=== PATIENT | female | born 1990 | race Caucasian/White ===

== ENCOUNTER 2016-11-15 19:55 | Emergency (ER) | payer OTHER ==
[~2016-11-15] VITALS: Ht 149.9 cm; Wt 59.6 kg
[~2016-11-15 19:55] MED LIST: OXCA300T PO; OXCA300T4 PO; QUET-205 PO; WLLSR/200 PO
[2016-11-15 20:04] VITALS: TEMP 36.8; Ht 149.9 cm; Wt 59.6 kg
[2016-11-15] MEDS ORDERED: SODIUM CHLORIDE 0.9% 1000ML 1,000 ML IV STA (20:26)
--- NOTE | 2016-11-15 20:40 | EMERGENCY ROOM VISIT NOTE ---
History Report prepared by Romeo: Andriy Devine Under the Supervision of: Dr. Dominique Jerry M.D. First contact with patient: 20:09 Chief Complaint: ED VAG BLEEDING Stated Complaint: CRAMPING, SPOTTING, APPROX 14 WKS History of Present Illness The patient is a 25 year old female who presents to the Emergency Room with complaints of persistent vaginal bleeding that started earlier today. She says she is spotting. The patient also complains of cramping abdominal pain. She thinks she is 14 weeks because her last period was on August 07. This would be her second . She denies any abnormal vaginal discharge, although the patient was seen by Dr. Grimm recently, and he said that the patient had some white secretions. The patient has not noticed these secretions. Dr. Grimm did a full pelvic exam the patient's family noted that Dr. Grimm noticed a bit of tenderness, but per the patient's family, the exam was mostly normal. She denies any urinary problems. The patient was still on an antibiotic for a UTI when she saw Dr. Grimm. Dr. Grimm did not put the patient on any additional antibiotics. She has an appointment with OBGYN at [facility] on December 21. She admits to smoking marijuana a couple weeks ago. She was tested for Hepatitis C by Dr. Grimm but the test has not resulted yet. The patient's blood type if A positive per previous laboratory work. Source of History: patient Onset: Earlier today Position: pelvis (vaginal bleeding) Timing: other (persistent) Associated Symptoms: + abdominal pain (cramping), No urinary symptoms Note: Associated symptoms: Denies any abnormal vaginal discharge. Review of Systems See HPI for pertinent positives & negatives. A total of 10 systems reviewed and were otherwise negative. Past Medical & Surgical Medical Problems: (1) Bipolar disorder (2) opiate addiction (3) Seizures (4) Tonsillectomy Family History No pertinent family history Social History Smoking Status: Never Smoker Drug Use: marijuana Marital Status: Housing Status: lives with family Occupation Status: disabled Current/Historical Medications Scheduled Multivit/Min/Iron/Fol Ac/Pren ( Vitamin), 1 TAB PO DAILY Multivit-Min W/Fe-Fa (), 1 TAB PO DAILY Allergies Coded Allergies: Penicillins (Verified Allergy, Unknown, ?CEPHALEXIN, 2/5/10) Sulfa Drugs (Verified Allergy, Unknown, 12/20/09) Physical Exam Vital Signs Date Time Temp Pulse Resp B/P Pulse Ox O2 Delivery O2 Flow Rate FiO2 11/15/16 23:30 106 18 109/83 100 11/15/16 22:35 116 11/15/16 22:34 115 18 126/98 96 Room Air 11/15/16 22:07 111 20 114/83 97 Room Air 11/15/16 21:19 118 18 130/67 98 Room Air 11/15/16 20:04 36.8 112 18 146/60 98 Room Air Physical Exam Vital signs reviewed. General: Well-appearing 25 year old female, in no significant distress. HEENT: No scleral icterus, PERRLA, neck supple. Atraumatic. Cardiovascular: Regular rate and rhythm, no extra sounds. Pulmonary: Clear to auscultation bilaterally, normal work of breathing. Abdomen: Soft, nontender, nondistended, positive bowel sounds. Musculoskeletal: Atraumatic, no peripheral edema. Neurologic: Patient awake alert and oriented x 3 Skin: Warm, dry, no rash Medical Decision & Procedures ER Provider Diagnostic Interpretation: US results as stated below per my review and radiologist interpretation: ULTRASOUND LIMITED CLINICAL HISTORY: . Spotting. COMPARISON STUDY: No priors. FINDINGS: Real-time, grayscale, and color Doppler transabdominal ultrasonography of the fetus and gravid uterus is performed. There is a single live uterine gestation with an estimated heart rate of 162 bpm. The cervix appears closed. The placenta is anterior. A [place] Sán[place] contraction was noted during the examination. The amniotic fluid volume is grossly normal. The femoral length measures 1.64 cm, corresponding to an estimated age of 14 weeks 6 days. The left ovary is normal in appearance. The right ovary was not visualized. IMPRESSION: 1. There is a single live uterine gestation with an estimated age of 14 weeks 6 days by femoral length measurement. 2. Note that this does not constitute a dedicated anatomic scan. Electronically signed by: Fantasma Stanton M.D. 11/15/2016 10:08 PM Laboratory Results 11/15/16 20:50 Red Blood Count 3.91, Mean Corpuscular Volume 88.0, Mean Corpuscular Hemoglobin 30.7, Mean Corpuscular Hemoglobin Concent 34.9, Mean Platelet Volume 9.2, Neutrophils (%) (Auto) 66.1, Lymphocytes (%) (Auto) 25.0, Monocytes (%) (Auto) 7.9, Eosinophils (%) (Auto) 0.3, Basophils (%) (Auto) 0.2, Neutrophils # (Auto) 6.90, Lymphocytes # (Auto) 2.60, Monocytes # (Auto) 0.82, Eosinophils # (Auto) 0.03, Basophils # (Auto) 0.02 11/15/16 20:50 Test 11/15/16 20:45 11/15/16 20:50 Urine Color DK YELLOW Urine Appearance CLEAR (CLEAR) Urine pH 6.0 (4.5-7.5) Urine Specific [place] 1.017 (1.000-1.030) Urine Protein NEG (NEG) Urine Glucose (UA) NEG (NEG) Urine Ketones TRACE (NEG) Urine Occult Blood NEG (NEG) Urine Nitrite NEG (NEG) Urine Bilirubin NEG (NEG) Urine Urobilinogen NEG (NEG) Urine Leukocyte Esterase SMALL (NEG) Urine WBC (Auto) 5-10 /hpf (0-5) Urine RBC (Auto) 0-4 /hpf (0-4) Urine Hyaline Casts (Auto) 1-5 /lpf (0-5) Urine Epithelial Cells (Auto) >30 /lpf (0-5) Urine Bacteria (Auto) 1+ (NEG) Urine Renal Epithelial Cells /lpf (0-5) Urine Opiates Screen NEG (NEG) Urine Methadone, Qualitative NEG (NEG) Urine Barbiturates NEG (NEG) Urine Phencyclidine (PCP) Level NEG (NEG) Ur Amphetamine/Methamphetamine NEG (NEG) MDMA (Ecstasy) Screen NEG (NEG) Urine Benzodiazepines Screen NEG (NEG) Urine Cocaine Metabolite NEG (NEG) Urine Marijuana (THC) POS (NEG) White Blood Count 10.42 K/uL (4.8-10.8) Red Blood Count 3.91 M/uL (4.2-5.4) Hemoglobin 12.0 g/dL (12.0-16.0) Hematocrit 34.4 % (37-47) Mean Corpuscular Volume 88.0 fL (80-100) Mean Corpuscular Hemoglobin 30.7 pg (25-34) Mean Corpuscular Hemoglobin Concent 34.9 g/dl (32-36) Platelet Count 268 K/uL (130-400) Mean Platelet Volume 9.2 fL (7.4-10.4) Neutrophils (%) (Auto) 66.1 % Lymphocytes (%) (Auto) 25.0 % Monocytes (%) (Auto) 7.9 % Eosinophils (%) (Auto) 0.3 % Basophils (%) (Auto) 0.2 % Neutrophils # (Auto) 6.90 K/uL (1.4-6.5) Lymphocytes # (Auto) 2.60 K/uL (1.2-3.4) Monocytes # (Auto) 0.82 K/uL (0.11-0.59) Eosinophils # (Auto) 0.03 K/uL (0-0.5) Basophils # (Auto) 0.02 K/uL (0-0.2) RDW Standard Deviation 47.2 fL (36.4-46.3) RDW Coefficient of Variation 14.7 % (11.5-14.5) Immature Granulocyte % (Auto) 0.5 % Immature Granulocyte # (Auto) 0.05 K/uL (0.00-0.02) Anion Gap 12.0 mmol/L (3-11) Est Creatinine Clear Calc Drug Dose 118.6 ml/min Estimated GFR () 148.1 Estimated GFR (Non- 127.8 BUN/Creatinine Ratio 10.5 (10-20) Calcium Level 8.8 mg/dl (8.5-10.1) Magnesium Level 2.0 mg/dl (1.8-2.4) Total Bilirubin 0.4 mg/dl (0.2-1) Direct Bilirubin 0.1 mg/dl (0-0.2) Aspartate Amino Transf (AST/SGOT) 99 U/L (15-37) Alanine Aminotransferase (ALT/SGPT) 153 U/L (12-78) Alkaline Phosphatase 56 U/L (45-117) Total Protein 7.2 gm/dl (6.4-8.2) Albumin 3.4 gm/dl (3.4-5.0) Human Chorionic Gonadotropin, Quant 61661 mIU/mL Laboratory results per my review. Medications Administered Medications (Trade) Dose Ordered Sig/Nicole Route Start Time Stop Time Status Last Admin Dose Admin Sodium Chloride (Nss 1000ml) 1,000 ml @ 999 mls/hr Q1H1M STAT IV 11/15/16 20:26 11/15/16 21:26 DC 11/15/16 20:53 999 MLS/HR Potassium Chloride 40 meq 40 meq NOW STAT PO 11/15/16 21:59 11/15/16 22:00 DC 11/15/16 22:24 40 MEQ Ceftriaxone Sodium/Dextrose (Rocephin Inj/D5 25ml) 27.5 ml @ 55 mls/hr NOW STAT IV 11/15/16 21:59 11/15/16 22:28 DC 11/15/16 22:33 55 MLS/HR Azithromycin (Zithromax Tab) 1,000 mg NOW ONCE PO 11/15/16 22:00 11/15/16 22:01 DC 11/15/16 22:23 1,000 MG ED Course 2022: Past medical records reviewed. The patient was evaluated in room C4. A complete history and physical examination was performed. 2025: Ordered NSS 1000 ml @ 999 mls/hr IV. 2158: Ordered Ceftriaxone Sodium 250 mg/Dextrose 27.5 ml @ 55 mls/hr IV, Klor- Con M10 40 meq PO. 2199: Ordered Zithromax Tab 1000 mg PO. 2214: I reevaluated the patient and she is resting comfortably. The patient verbally expressed agreement and understanding of the treatment plan. The patient will be discharged. Medical Decision Differential diagnosis: Etiologies such as ectopic , dysfunction uterine bleeding, bleeding dyscrasia, trauma, infection, as well as others were entertained. This patient was evaluated and appeared to be in no significant distress. Laboratory work reveals a positive test. Ultrasound was performed and reveals a viable intrauterine gestation at approximately 14 weeks. Records from the outpatient office were obtained and reveal a positive chlamydia, gonorrhea is pending. Patient is also hepatitis C positive, HIV negative. Patient was medicated with IV ceftriaxone 250 mg and 1 g of oral azithromycin. As the patient recently had a pelvic exam only several days ago, repeat exam was not obtained. Patient was informed of the findings. Old records review an Rh+ blood type, no Rhogam and was administered. The bleeding is not significant at this time. Patient was discharged follow-up with [facility] as scheduled and her primary care physician. She was asked to return to the ER for worsening of symptoms or any medical concerns. Impression Primary Impression: Chlamydia Additional Impressions: Second trimester , Hepatitis C, History of IV drug abuse Scribe Attestation The scribe's documentation has been prepared under my direction and personally reviewed by me in its entirety. I confirm that the note above accurately reflects all work, treatment, procedures, and medical decision making performed by me. Departure Information Dispostion Home / Self-Care Prescriptions Multivit-Min W/Fe-Fa () 1 Tab Tab 1 TAB PO DAILY for 30 Days, #30 TAB 11 Refills Prov: Dominique Jerry M.D. 11/15/16 Referrals No Doctor, Assigned (PCP) Wil Grimm M.D. Sahin-Kandemir, Canan., MD Forms HOME CARE DOCUMENTATION FORM, IMPORTANT VISIT INFORMATION, WORK / SCHOOL INSTRUCTIONS Patient Instructions A Signature Page, My [facility] Additional Instructions Diagnosis: Second trimester , hepatitis C, chlamydia, history of IV drug abuse Drink plenty of clear fluids. vitamin daily. Avoid illicit substances, narcotics, excessive Tylenol, alcohol and nicotine. Follow-up with [facility] as soon as possible to initiate care. You have been given ceftriaxone and azithromycin in the emergency department today. Follow-up with your primary care physician for further management regarding the hepatitis C. Return to the emergency department for worsening of symptoms or any medical concerns.
[2016-11-15 21:04] LABS: BASO % 0.2 %; BASO ABS # 0.02 K/uL (0-0.2); COMPLETE YES; EOS % 0.3 %; HEMATOCRIT 34.4 % (37-47); IG% 0.5 %; MEAN CORPUSCULAR HEMOGLOBIN 30.7 pg (25-34); MEAN CORPUSCULAR HGB CONC 34.9 g/dl (32-36); MEAN PLATELET VOLUME 9.2 fL (7.4-10.4); MONO % 7.9 %; NEUT % 66.1 %; PLATELET COUNT 268 K/uL (130-400); RED BLOOD COUNT 3.91 M/uL (4.2-5.4); WHITE BLOOD COUNT 10.42 K/uL (4.8-10.8)
[2016-11-15 21:22] LABS: BUN/CREATININE RATIO 10.5 (10-20); CALCIUM 8.8 mg/dl (8.5-10.1); CREATININE 0.56 mg/dl (0.60-1.20); POTASSIUM 3.1 mmol/L (3.5-5.1)
[2016-11-15 21:26] LABS: URINE APPEARANCE CLEAR (CLEAR); URINE BILIRUBIN NEG (NEG); URINE COLOR DK YELLOW; URINE EPITHELIAL CELL AUTO >30 /lpf (0-5); URINE NITRITE NEG (NEG); URINE SPECIFIC GRAVITY 1.017 (1.000-1.030); UROBILINOGEN NEG (NEG); ZZUR CULT IF INDIC CLEAN CATCH YES
[2016-11-15 21:38] LABS: MANUAL MICROSCOPIC REQUIRED? NO; REVIEW REQ? YES
[2016-11-15] MEDS ORDERED: CEFTRIAXONE SOD INJ 250 MG in DEXTROSE 5% 25ML 25 ML IV STA (21:59)
[2016-11-15] MEDS ORDERED: POTASSIUM CHLORIDE 10 MEQ TABCR PO STA (21:59)
[2016-11-15] MEDS ORDERED: AZITHROMYCIN 250 MG TAB PO ONE (22:00)
--- NOTE | 2016-11-15 22:09 | DIAGNOSTIC IMAGING REPORT ---
ULTRASOUND LIMITED CLINICAL HISTORY: . Spotting. COMPARISON STUDY: No priors. FINDINGS: Real-time, grayscale, and color Doppler transabdominal ultrasonography of the fetus and gravid uterus is performed. There is a single live uterine gestation with an estimated heart rate of 162 bpm. The cervix appears closed. The placenta is anterior. A [place] Sánchez contraction was noted during the examination. The amniotic fluid volume is grossly normal. The femoral length measures 1.64 cm, corresponding to an estimated age of 14 weeks 6 days. The left ovary is normal in appearance. The right ovary was not visualized. IMPRESSION: 1. There is a single live uterine gestation with an estimated age of 14 weeks 6 days by femoral length measurement. 2. Note that this does not constitute a dedicated anatomic scan. Electronically signed by: Fantasma Stanton M.D. 11/15/2016 10:08 PM
[2016-11-15] MEDS ORDERED: PRENTAB65 PO (22:38)
[2016-11-15 22:54] LABS: BENZODIAZEPINE, URINE NEG (NEG); COCAINE,URINE NEG (NEG); PHENCYCLIDINE, URINE NEG (NEG)
[2016-11-15] MEDS ORDERED: PRENTAB26 PO (23:04)
[2016-11-15 23:30] VITALS: BP 109/83; PULSE 106; O2SAT 100
[2017-04-26] MEDS ORDERED: vitamin d (15:01)
[2017-05-01] MEDS ORDERED: VORT5TAB PO (21:36)
== END 2016-11-15 23:30 | disposition home or self-care (01) ==
LOC: C.EDB 19:57 → C.EDC 23:30
DX: O99.342 Other mental disorders complicating pregnancy, second trimester (principal); A74.9 Chlamydial infection, unspecified; B19.20 Unspecified viral hepatitis C without hepatic coma; F19.10 Other psychoactive substance abuse, uncomplicated; F31.9 Bipolar disorder, unspecified; Z3A.14 14 weeks gestation of pregnancy

== ENCOUNTER 2017-04-30 01:05 | Inpatient (IN) | payer OTHER ==
[2017-04-30] VITALS (16 sets, daily range): BP systolic 114–143; BP diastolic 72–80; PULSE 69–91; TEMP 36.7–37.5; O2SAT 95–100; Ht 149.9 cm; Wt 70.5 kg
[~2017-04-30] VITALS: Ht 149.9 cm; Wt 70.5 kg
[~2017-04-30 01:05] MED LIST changes: -OXCA300T PO; -OXCA300T4 PO; +PRENTAB26 PO; -QUET-205 PO; -WLLSR/200 PO; +vitamin d
[2017-04-30] MEDS ORDERED: LACTATED RINGER'S 1000ML 1,000 ML IV SCH ×2 (05:17→07:40)
[2017-04-30] MEDS ORDERED: CITRIC ACID/SODIUM CITRATE 15 ML UDC PO ONE (05:30)
[2017-04-30] MEDS ORDERED: FENTANYL CITRATE INJ 50 MCG/1 ML 2 ML VIAL IV PRN (05:45)
[2017-04-30] MEDS ORDERED: ATROPINE SULFATE 0.1 MG/ML 5ML SYR IV PRN (05:45)
[2017-04-30] MEDS ORDERED: ONDANSETRON INJ 2 MG/ML 2 ML VIAL IV PRN ×2 (05:45→06:45)
[2017-04-30] MEDS ORDERED: EpHEDrine SULFATE INJ 50 MG/ML AMP IV PRN ×2 (05:45→06:45)
[2017-04-30] MEDS ORDERED: KETOROLAC TROMETHAMINE 30 MG/ML VIAL IV. PRN ×2 (05:45→06:45)
--- NOTE | 2017-04-30 05:50 | History & Physical Bridge Note ---
H&P Re-Evaluation Bridge Note: I have examined the patient, reviewed the History & Physical and in the interval since the performance of the History & Physical I have noted the following changes of clinical significance: Patient is in active labor at 38 weeks, will proceed with scheduled primary section secondary to a history of a fourth degree laceration. Risks were discussed with the patient, informed consent signed.
[2017-04-30] MEDS ORDERED: CEFAZOLIN IV 2,000 MG in DEXTROSE 5% 50ML 50 ML IV SCH (06:00)
[2017-04-30] MEDS ORDERED: OXYTOCIN INJ 10 UNITS/ML VIAL ONE ×2 (06:02→07:02)
[2017-04-30] MEDS ORDERED: FENTANYL CITRATE INJ 50 MCG/1 ML 2 ML VIAL ONE (06:02)
[2017-04-30] MEDS ORDERED: MoRPHine SULFATE PF 1 MG/ML 10 ML AMP/VIAL ONE (06:02)
[2017-04-30 06:14] LABS: BASO % 0.1 %; BASO ABS # 0.02 K/uL (0-0.2); COMPLETE YES; EOS % 0.7 %; HEMATOCRIT 41.4 % (37-47); IG% 0.8 %; LYMPH % 27.9 %; LYMPH ABS # 3.77 K/uL (1.2-3.4); MEAN CELL VOLUME 91.8 fL (80-100); MEAN CORPUSCULAR HEMOGLOBIN 31.3 pg (25-34); MEAN CORPUSCULAR HGB CONC 34.1 g/dl (32-36); MEAN PLATELET VOLUME 11.5 fL (7.4-10.4); MONO % 8.7 %; NEUT % 61.8 %; PLATELET COUNT 236 K/uL (130-400); RED BLOOD COUNT 4.51 M/uL (4.2-5.4); WHITE BLOOD COUNT 13.52 K/uL (4.8-10.8)
[2017-04-30] MEDS ORDERED: NALOXONE HCL INJ 1 MG in SODIUM CHLORIDE 0.9% 1000ML 1,000 ML IV PRN (06:43)
[2017-04-30] MEDS ORDERED: LACTATED RINGER'S 1000ML 500 ML IV PRN (06:43)
[2017-04-30] MEDS ORDERED: NALOXONE HCL INJ 0.08 MG in SYRINGE 1.8 ML IV PRN (06:43)
[2017-04-30] MEDS ORDERED: SODIUM CHLORIDE 0.9% 1000ML 1,000 ML IV PRN (06:43)
[2017-04-30] MEDS ORDERED: NALOXONE HCL 0.4 MG/1 ML VIAL/CARP IV PRN (06:45)
[2017-04-30] MEDS ORDERED: NO NARCOTICS OR SEDATIVES SCH (06:45)
[2017-04-30] MEDS ORDERED: MEPERIDINE HCL 25 MG/ML CARP IV PRN (06:45)
[2017-04-30] MEDS ORDERED: DC INTRASPINAL MORPHINE SCH (06:45)
[2017-04-30] MEDS ORDERED: MoRPHine SULFATE PF 1 MG/ML 10 ML AMP/VIAL EPI PRN (06:45)
[2017-04-30] MEDS ORDERED: PHENYLEPHRINE HCL INJ 10 MG/ML VIAL ONE (06:50)
[2017-04-30] MEDS ORDERED: BENZOCAINE 20% AER SPR 82.5 GM CAN ONE (06:51)
[2017-04-30 07:45] LABS: BENZODIAZEPINE, URINE NEG (NEG); COCAINE,URINE NEG (NEG); PHENCYCLIDINE, URINE NEG (NEG)
[2017-04-30] MEDS ORDERED: BENZOCAINE 20% AER SPR 82.5 GM CAN EXT PRN (07:45)
[2017-04-30] MEDS ORDERED: LANOLIN OINT EXT PRN ×2 (07:45)
[2017-04-30] MEDS ORDERED: HYDROCORTISONE ACETATE 25 MG SUPP PR PRN (07:45)
[2017-04-30] MEDS ORDERED: MAGNESIUM HYDROXIDE SUSP 30 ML UDC PO PRN (07:45)
[2017-04-30] MEDS ORDERED: DIPHTHERIA/TETANUS/PERTUSSIS 0.5 ML SYR/VIAL IM. ONE (07:45)
[2017-04-30] MEDS ORDERED: SENNA 8.6 MG TAB PO PRN (07:45)
[2017-04-30] MEDS ORDERED: SUPERCREAM 0.870 % 15GM JAR EXT PRN (07:45)
--- NOTE | 2017-04-30 07:45 | [facility] Post Operative Brief Note ---
Immediate Operative Summary Operative Date Apr 30, 2017. Pre-Operative Diagnosis IUP 38 weeks; Hx fourth degree laceration; Requesting primary Section; Active labor Post-Operative Diagnosis IUP 38 weeks; Hx fourth degree laceration; Requesting primary Section; Active labor Procedure(s) Performed Primary Section for delivery of a live male child at [address] Holman [employer] Manager Surgeon(s) Janel Mariee Estimated Blood Loss 600 Findings Patient delivered a viable male at 0702 on 04/30/2017 in the vertex position via primary LTCS. APGARs and weight pending. Intact placenta with a 3 VC delivered manually 0703 and sent to pathology. Cord blood obtained. Normal uterus and bilateral tubes and ovaries noted. Patient tolerated the surgery well and was sent to recovery with stable vital signs. Fluids (cc crystalloids) 1500 Specimens Placenta (exam) Cord blood Drains Boswell to gravity Anesthesia Spinal Complication(s) None Disposition L&D
[2017-04-30] MEDS: DOCUSATE SODIUM 100 MG CAP PO SCH ×2 (08:00→19:13)
[2017-04-30] MEDS: FERROUS SULFATE 325 MG TAB PO SCH (08:00)
[2017-04-30] MEDS: PRENATAL VITAMIN TAB PO SCH (08:00)
[2017-04-30] MEDS: DiphenhydrAMINE HCL 50 MG/ML VIAL IV PRN ×3 (08:06→20:26)
--- NOTE | 2017-04-30 08:16 | OPERATIVE REPORT ---
DATE OF OPERATION: 04/30/2017 PREOPERATIVE DIAGNOSES: 1. Intrauterine at 38 weeks gestation. 2. History of fourth degree laceration, requesting a primary section. 3. Active labor. POSTOPERATIVE DIAGNOSES: Same. OPERATIVE PROCEDURE: Primary low transverse section. SURGEON: Dr. Holman. FINISH CLEANER: Janel Mariee RN. ANESTHESIA: Spinal. ESTIMATED BLOOD LOSS: 600 mL. IV FLUIDS: 1500 mL crystalloids. URINE OUTPUT: 100 mL clear yellow urine. SPECIMENS: Cord blood and placenta to pathology. DRAINS: Boswell to gravity. COMPLICATIONS: None. DISPOSITION: Labor and delivery. OPERATIVE FINDINGS: The patient delivered a viable male infant at 7:02 a.m. on 04/30/2017 in the vertex position via primary low transverse section. Apgars and weight are pending. Cord blood was obtained and an intact placenta with a 3-vessel cord was delivered manually at 7:03 and sent to pathology. Grossly normal uterus and bilateral tubes and ovaries were noted. The patient tolerated the surgery well and was sent to recovery with stable vital signs. OPERATIVE PROCEDURE IN DETAIL: The patient was taken to the operating room where spinal anesthesia was administered. The patient was then immediately placed in dorsal supine position with a left lateral tilt and was prepped and draped in a manner appropriate for the procedure. Once anesthesia was found to be adequate, a Pfannenstiel skin incision was made 2 fingerbreadths above the pubic symphysis and was carried down through to a layer of the rectus fascia. Fascia was nicked in the midline and extended bilaterally with curved Krause scissors. The superior aspect of the fascial incision was grasped with Giuseppe clamps, elevated, and the rectus muscles were dissected off with the use of the curved Krause scissors and electrocautery. Likewise, the inferior aspect of the fascial incision was grasped with Giuseppe clamps, elevated, and rectus muscles were dissected off with the use of the curved Krause scissors and electrocautery. Rectus muscles were in midline. Peritoneum was entered with hemostats and Metzenbaum scissors. The peritoneal incision was extended cephalocaudally with gentle traction. A bladder blade was then placed within the abdomen. The vesicouterine peritoneum was identified and a bladder flap was created with the Metzenbaum scissors and digital traction. The bladder flap was reincorporated beneath the bladder blade. A transverse incision was then made on the uterus and extended bilaterally with digital traction. Membranes were then ruptured noting clear amniotic fluid. Baby's head was identified and delivered through the incision along with the rest of the body. Baby was bulb suctioned at delivery. Cord was clamped x2 and cut. Baby was then handed to an awaiting systems spec for further evaluation and management. Please see their notes for further baby assessment. Cord blood was then obtained and an intact placenta with 3-vessel cord was delivered through the incision and sent to pathology. The uterus was then exteriorized and wrapped in a moist laparotomy sponge. The uterus was then cleared of any trailing membranes and debris with laparotomy sponge. The uterine incision was then grasped with ring forceps at 4 quadrants and was closed with 0 Vicryl suture in continuous locking fashion. A second 0 Vicryl suture was used in imbricating fashion to ensure hemostasis. Any residual bleeding was suture ligated with 0 Vicryl suture in a figure-of-8 interrupted fashion. Excellent hemostasis was noted. The posterior cul-de-sac was then irrigated with warm saline solution. The uterus was then placed back within its normal anatomic position within the abdomen. The anterior cul-de-sac was then irrigated with warm saline solution. Again, the uterine incision was noted to be hemostatic. The bladder flap was reapproximated to the lower uterine segment with 3-0 Vicryl suture in continuous running fashion. All instruments were then removed from the abdomen. The peritoneum was then grasped with Lucinda clamps and was closed with 2-0 Vicryl suture in continuous running fashion. The rectus fascia was then closed with 0 Vicryl suture in continuous running fashion. The incision was then irrigated with warm saline solution. The incision was then closed with staci. Excellent hemostasis was noted through all tissue layers. All sponge, instrument and needle counts were found to be correct x2. The patient tolerated the procedure well and was sent to recovery with stable vital signs. I attest to the content of the Intraoperative Record and any orders documented therein. Any exceptions are noted below. DENNY
[2017-04-30] MEDS: NALBUPHINE HCL INJ 10 MG/ML AMP IV PRN ×3 (08:19→16:58)
[2017-04-30] MEDS: OXYTOCIN INJ 30 UNITS in LACTATED RINGER'S 1000ML 1,000 ML IV SCH ×2 (08:49→18:20)
[2017-04-30] MEDS: SIMETHICONE 80 MG CHEW PO SCH ×4 (09:00→19:13)
--- NOTE | 2017-04-30 10:14 | Anesthesiology Progress Note ---
Anesthesia Post Op Note Date & Time Apr 30, 2017 at 10:14 Notes Mental Status: alert / awake / arousable, participated in evaluation Pt Amnestic to Procedure: Yes Nausea / Vomiting: adequately controlled Pain: adequately controlled Airway Patency, RR, SpO2: stable & adequate BP & HR: stable & adequate Hydration State: stable & adequate Neuraxial Anesthesia: was administered, sensory block is resolving Anesthetic Complications: no major complications apparent
[2017-05-01 00:45] VITALS: BP 129/82; PULSE 82; TEMP 37.4; O2SAT 95
[2017-05-01] MEDS ORDERED: KETOROLAC TROMETHAMINE 30 MG/ML VIAL IV. PRN (00:45)
[2017-05-01] MEDS ORDERED: ONDANSETRON INJ 2 MG/ML 2 ML VIAL IV PRN (00:45)
[2017-05-01 03:35] VITALS: BP 114/80; PULSE 78; TEMP 37.2; O2SAT 97
[2017-05-01 06:49] LABS: BASO % 0.1 %; BASO ABS # 0.02 K/uL (0-0.2); COMPLETE YES; HEMATOCRIT 37.5 % (37-47); IG% 0.6 %; LYMPH % 22.7 %; LYMPH ABS # 3.07 K/uL (1.2-3.4); MEAN CELL VOLUME 92.6 fL (80-100); MEAN CORPUSCULAR HEMOGLOBIN 30.1 pg (25-34); MEAN CORPUSCULAR HGB CONC 32.5 g/dl (32-36); MEAN PLATELET VOLUME 11.2 fL (7.4-10.4); MONO % 7.8 %; NEUT % 67.8 %; PLATELET COUNT 216 K/uL (130-400); RED BLOOD COUNT 4.05 M/uL (4.2-5.4); WHITE BLOOD COUNT 13.51 K/uL (4.8-10.8)
[2017-05-01 07:50] VITALS: BP 106/72; PULSE 72; TEMP 37.1; O2SAT 97
[2017-05-01] MEDS ORDERED: DIPHTHERIA/TETANUS/PERTUSSIS 0.5 ML SYR/VIAL IM. ONE (09:00)
[2017-05-01] MEDS: DOCUSATE SODIUM 100 MG CAP PO SCH ×2 (09:09→20:29)
[2017-05-01] MEDS: FERROUS SULFATE 325 MG TAB PO SCH (09:09)
[2017-05-01] MEDS: PRENATAL VITAMIN TAB PO SCH (09:09)
[2017-05-01] MEDS: SIMETHICONE 80 MG CHEW PO SCH ×4 (09:09→20:28)
[2017-05-01] MEDS: OXYCODONE/ACETAMINOPHEN 5-325 TAB PO PRN ×4 (09:10→20:28)
[2017-05-01] MEDS: IBUPROFEN 600 MG TAB PO PRN ×4 (09:10→20:28)
--- NOTE | 2017-05-01 10:33 | OB/GYN Progress Note ---
[employer] MECH[employer] Progress Note Date of Service May 01, 2017. Subjective conversation w/ patient, physical exam Ambulation: ambulating normally Voiding: no voiding problems Passing Gas: Yes Diet Tolerance: Regular Diet Lochia: Small Pain: 5/10 Notes: Doing well, no concerns. Pain well controlled. Tolerating regular diet, +flatus , -BM. Ambulating without difficulty. Incision is c/d/i. Objective Vital Signs Date Time Temp Pulse Resp B/P (MAP) Pulse Ox O2 Delivery O2 Flow Rate FiO2 05/01/17 07:50 37.1 72 20 106/72 (83) 97 Room Air 05/01/17 03:35 37.2 78 18 114/80 (91) 97 Room Air 05/01/17 00:45 18 95 05/01/17 00:45 95 Room Air 05/01/17 00:45 37.4 82 18 129/82 (98) 95 Room Air 04/30/17 23:45 16 95 04/30/17 21:00 18 97 04/30/17 20:00 18 98 04/30/17 19:15 37.5 91 18 117/78 (91) 97 Room Air 04/30/17 19:00 18 98 04/30/17 18:00 18 97 04/30/17 17:00 18 97 04/30/17 16:45 97 Room Air 04/30/17 16:45 37.2 88 18 116/72 (87) 97 Room Air 04/30/17 16:00 18 98 04/30/17 15:00 18 98 04/30/17 14:00 18 98 04/30/17 13:00 83 18 116/73 (87) 97 Room Air 04/30/17 13:00 18 97 04/30/17 12:05 36.7 78 18 114/73 (87) 98 Room Air 04/30/17 12:05 18 98 04/30/17 11:05 18 100 04/30/17 11:05 88 18 143/77 (99) 100 Room Air 04/30/17 10:35 69 18 115/77 (90) 99 Room Air Physical Exam General Appearance: WELL-APPEARING Respiratory/Chest: chest non-tender, lungs clear Cardiovascular: regular rate, rhythm Abdomen: normal bowel sounds, soft Fundus: Firm Incision Description: Clean, Dry & Intact Extremities: normal range of motion, non-tender, no calf tenderness Laboratory Results Last 24 Hours Test 05/01/17 06:26 White Blood Count 13.51 K/uL Red Blood Count 4.05 M/uL Hemoglobin 12.2 g/dL Hematocrit 37.5 % Mean Corpuscular Volume 92.6 fL Mean Corpuscular Hemoglobin 30.1 pg Mean Corpuscular Hemoglobin Concent 32.5 g/dl Platelet Count 216 K/uL Mean Platelet Volume 11.2 fL Neutrophils (%) (Auto) 67.8 % Lymphocytes (%) (Auto) 22.7 % Monocytes (%) (Auto) 7.8 % Eosinophils (%) (Auto) 1.0 % Basophils (%) (Auto) 0.1 % Neutrophils # (Auto) 9.15 K/uL Lymphocytes # (Auto) 3.07 K/uL Monocytes # (Auto) 1.05 K/uL Eosinophils # (Auto) 0.14 K/uL Basophils # (Auto) 0.02 K/uL RDW Standard Deviation 47.7 fL RDW Coefficient of Variation 14.0 % Immature Granulocyte % (Auto) 0.6 % Immature Granulocyte # (Auto) 0.08 K/uL Assessment and Plan Post-Op Day Number: 1 Continue Routine Care: -Continue routine postop care -Advance activity as tolerated.
[2017-05-01 12:45] VITALS: BP 107/70; PULSE 69; TEMP 36.6; O2SAT 99
[2017-05-01 16:10] VITALS: BP 110/71; PULSE 72; TEMP 36.7
[2017-05-01] MEDS ORDERED: VORT5TAB PO (21:36)
[2017-05-01] MEDS ORDERED: BISACODYL 5 MG TABEC PO ONE (22:00)
[2017-05-02 00:30] VITALS: BP 118/64; PULSE 83; TEMP 36.9
[2017-05-02] MEDS: IBUPROFEN 600 MG TAB PO PRN ×5 (00:38→20:42)
[2017-05-02] MEDS: OXYCODONE/ACETAMINOPHEN 5-325 TAB PO PRN ×5 (00:39→20:42)
[2017-05-02 06:46] LABS: HEMATOCRIT 35.4 % (37-47)
[2017-05-02] MEDS ORDERED: BISACODYL 10 MG SUPP PR PRN (07:45)
[2017-05-02 08:05] VITALS: BP 104/66; PULSE 60; TEMP 36.7; O2SAT 98
[2017-05-02] MEDS: FERROUS SULFATE 325 MG TAB PO SCH (08:42)
[2017-05-02] MEDS: DOCUSATE SODIUM 100 MG CAP PO SCH ×2 (08:42→20:41)
[2017-05-02] MEDS: PRENATAL VITAMIN TAB PO SCH (08:42)
[2017-05-02] MEDS: SIMETHICONE 80 MG CHEW PO SCH ×4 (08:42→20:41)
--- NOTE | 2017-05-02 10:49 | OB/GYN Progress Note ---
EMERGENCY DEPT TECH Progress Note Date of Service May 02, 2017. Subjective conversation w/ patient, physical exam Ambulation: ambulating normally Voiding: no voiding problems Passing Gas: Yes Diet Tolerance: Regular Diet Lochia: Small Pain: 05/24 Notes: Doing well. Tolerating regular diet. Ambulating without difficulty. Lochia minimal. Incision c/d/i. Objective Vital Signs Date Time Temp Pulse Resp B/P (MAP) Pulse Ox O2 Delivery O2 Flow Rate FiO2 05/02/17 08:05 36.7 60 20 104/66 (79) 98 Room Air 05/02/17 00:30 Room Air 05/02/17 00:30 36.9 83 20 118/64 (82) Room Air 05/01/17 16:10 36.7 72 20 110/71 (84) Room Air 05/01/17 16:10 Room Air 05/01/17 12:45 36.6 69 16 107/70 (82) 99 Room Air Physical Exam General Appearance: WELL-APPEARING Respiratory/Chest: chest non-tender, lungs clear Cardiovascular: regular rate, rhythm Abdomen: normal bowel sounds, soft Fundus: Firm Incision Description: Clean, Dry & Intact Extremities: normal range of motion, non-tender, no calf tenderness Laboratory Results Last 24 Hours Test 05/02/17 06:21 Hemoglobin 12.0 g/dL Hematocrit 35.4 % Assessment and Plan Post-Op Day Number: 2 Continue Routine Care: -Continue routine postop care -Anticipate d/c home tomorrow AM.
[2017-05-02 15:30] VITALS: BP 114/73; PULSE 74; TEMP 37.2
[2017-05-02 23:45] VITALS: BP 115/78; PULSE 75; TEMP 36.9
[2017-05-03] MEDS: IBUPROFEN 600 MG TAB PO PRN (00:47)
[2017-05-03] MEDS: OXYCODONE/ACETAMINOPHEN 5-325 TAB PO PRN ×2 (00:48→07:52)
[2017-05-03] MEDS: DOCUSATE SODIUM 100 MG CAP PO SCH (07:46)
[2017-05-03] MEDS: SIMETHICONE 80 MG CHEW PO SCH (07:46)
[2017-05-03] MEDS: FERROUS SULFATE 325 MG TAB PO SCH (07:46)
[2017-05-03] MEDS: PRENATAL VITAMIN TAB PO SCH (07:46)
[2017-05-03 08:20] VITALS: BP 111/55; PULSE 76; TEMP 37.1; O2SAT 99
[2017-05-03] MEDS ORDERED: OXYC-57 PO (09:29)
--- NOTE | 2017-05-03 09:31 | Discharge Instructions ---
Discharge Instructions Date of Service May 03, 2017. Admission Reason for Admission: LABOR Discharge Discharge Diagnosis / Problem: term delivered Discharge Goals Goal(s): Routine recovery after Activity Recommendations Activity Limitations: as noted below Lifting Limitations: no more than 10 pounds Exercise/Sports Limitations: as tolerated May Resume Sexual Activity: after follow-up appointment Shower/Bathe: no limitations Driving or Machine Use: . Instructions / Follow-Up Instructions / Follow-Up ACTIVITY RECOMMENDATIONS: * Gradual return to full activity over the next 2-3 weeks. * No lifting - nothing heavier than baby over the next 2-3 weeks. * Do not engage in vigorous exercise, sexual activity or sports until cleared by your physician. * Do not drive or operate any motorized equipment until cleared by your physician. * You may shower/bathe daily. BREAST CARE: If you are not breast feeding: * Wear a supportive bra 24 hours a day for one to two weeks. * Avoid stimulating your breasts and nipples as much as possible during the first few weeks after delivery. * When taking a shower, have the warm water hit your back, not breasts. * When your breasts feel full, apply ice packs. Usually three to four times a day helps ease the discomfort. * Take a mild pain medication (Tylenol/Motrin) when you are uncomfortable. If breast feeding: * Use breast milk to lubricate nipples. Lansinoh cream may be used for sore nipples. You do not need to remove cream prior to breast feeding. If using a different brand of cream, check the label for directions regarding removal of cream prior to nursing. * Wear a supportive bra. * If having problems with breasts or breast feeding, call a learning and development consultant or your health care provider. OVER THE COUNTER MEDICATION: * For discomfort or pain, you may use Acetaminophen (Tylenol), Ibuprofen (Advil ), or Naproxen (Aleve) following the package directions. * For constipation you may use Colace following the package directions. SPECIAL CARE INSTRUCTIONS: When you are discharged from the hospital, it is important for you to follow the instructions listed below: * During the first week at home, you should be able to care for yourself and your baby. In addition, the usual light household activities are encouraged. * Limit your activities to the way you feel. Do not try to clean the house or move furniture. Be sensible. * If you actively engage in sports and have done so up until the time of your delivery, you may resume these activities as soon as you feel able. This may take up to one month or even longer. Use good judgment. * Continue to take your vitamins for at least six weeks after the of your baby. * Your diet need not be limited unless you were on a special diet before your delivery. Breast-feeding mothers need around 2500 calories per day and at least 64-80 ounces of fluid per day (8 to 10 glasses). * You should eat foods from the four major food groups. Crash diets or fad diets are to be avoided. Eating lean meats, fresh fruits and vegetables, low-fat dairy products, high fiber foods and a regular exercise program, will help you get back to your pre- weight without putting your health at risk. * Constipation is sometimes a problem after delivery. Take a mild laxative as needed. If breast feeding, Milk of Magnesia is acceptable to use. You may use a suppository or Fleets enema if no episiotomy. * A daily shower or tub bath is suggested. Be sure to thoroughly and gently dry the perineum. * A bloody vaginal discharge will usually continue until around four weeks post . A small amount of bleeding may continue for as long as six weeks. Vaginal discharge changes from the bright red bleeding after delivery to pink then brownish and finally yellowish-pink before becoming white and disappearing. * Bleeding may increase with activity. Your first period may come in 4-8 weeks. If you are breast feeding, your period may be delayed even longer. * [place] (sex) can begin whenever both you and your partner feel comfortable and do not have any form of genital infection. It is recommended that you wait at least six weeks for internal and external healing to occur. If you have questions, please talk to your health care practitioner. A condom should be used to prevent infection and . * Foreplay, gentle intercourse and lubrication is very important the first several times to prevent pain. A water-based lubricant such as K-Y jelly or Astroglide may be used. * Tampons and/or Douching should be avoided until after six weeks check-up. * If you have RH negative blood and your baby is RH positive, you will receive RHOGAM by injection prior to discharge. The nurse will give you a card to keep with you that has the date and place that you received RHOGAM after delivery. * During your care, you had a Rubella screen done to check for the presence of rubella antibodies in your blood. If your test was negative, you will receive a Rubella vaccine prior to discharge. This vaccine may cause a fever, soreness at the injection site and flu-like symptoms. If these symptoms persist, notify your health care practitioner. is not advised for three months after a Rubella vaccine. * Verbalizes understanding of car seat law as reviewed with patient nursing. * Car Seat hand-out given and reviewed with patient by nursing. * Shaken baby information reviewed with patient by nursing. Call you doctor if: * Heavy bleeding (saturating several pads an hour) or passing clots the size of your fist. * A fever >101 degrees F (38.3 degrees C) on two occasions four hours apart and /or chills. * Unusual pain in the pelvic or vaginal areas. Pain should improve each day . * Call the doctor for any increased redness, drainage or swelling around the incision and any pain unrelieved by prescribed pain medication. * Any signs or symptoms of phlebitis (possible blood clots forming in the veins ): leg pain, warm, red or swollen area on leg. * "Baby Blues" lasting longer than two weeks. If you have any questions or concerns, call your health care practitioner at . FOLLOW-UP VISIT: * Incision check (staple removal) in 1 week. Please call doctor's office at to set up appointment. * Please call the office at to schedule a 6 week examination. It is important you keep this appointment. * It is important for you to make arrangements for either yearly or twice yearly check-ups thereafter. Current Hospital Diet Patient's current hospital diet: Regular OB Diet Discharge Diet Recommended Diet: Regular OB Diet Fluid Restriction: None Procedures Procedures Performed: Primary Section for delivery of a live male child at 0702 Pending Studies Studies pending at discharge: no Medical Emergencies . Who to Call and When: Medical Emergencies: If at any time you feel your situation is an emergency, please call 911 immediately. . Non-Emergent Contact Non-Emergency issues call your: Primary Care Provider . . "Provider Documentation" section prepared by Vinod Aragon. . VTE Core Measure Inpt VTE Proph given/why not?: Treatment not indicated
--- NOTE | 2017-05-03 09:32 | Surgery Progress Note ---
Surgery Progress Note Date of Service May 03, 2017. Subjective Post OP Day: 3 + feeling well, + ambulating, + flatus, + pain controlled, + diet Objective Vital Signs: Date Time Temp Pulse Resp B/P (MAP) Pulse Ox O2 Delivery O2 Flow Rate FiO2 05/02/17 23:45 Room Air 05/02/17 23:45 36.9 75 18 115/78 (90) Room Air 05/02/17 15:30 Room Air 05/02/17 15:30 37.2 74 20 114/73 (87) Room Air General Appearance: no apparent distress Abdomen: non tender, non distended, soft Incision(s): clean, dry, intact Extremities: non-tender, normal inspection, no pedal edema, no calf tenderness Assessment & Plan regular diet POD#3 discharged
[2017-05-03 10:30] VITALS: BP_DIAS 55; PULSE 76; TEMP 37.1
--- NOTE | 2017-05-13 19:54 | Discharge Summary ---
Discharge Summary Date of Service May 13, 2017. Discharge Summary Admission Date: Apr 30, 2017 at 05:19 Discharge Date: May 03, 2017 Discharge Disposition: Home Principal Diagnosis: IUP @ 38 weeks, Active labor, hx prior fourth degree laceration requesting primary section Procedures: Primary section Medication Reconciliation New Medications: Vortioxetine HBr (Brintellix) 5 Mg Tab 10 MG PO DAILY, #30 6 Refills Oxycodone/Acetaminophen 5MG/325MG (Percocet 5MG/325MG) Tab 1 TAB PO Q4H PRN for Pain - Pain Scale 1-5, #20 TAB 0 Refills PAIN Continued Medications: Multivit/Min/Iron/Fol Ac/Pren ( Vitamin) Tab 1 TAB PO QPM, TAB Admission Information HPI (per Admitting provider): Patient is 26 y/o @ 38 weeks came into L&D with contractions. She has a history of a fourth degree laceration with her first delivery and therefore she requested a primary section. Her care has been uncomplicated. On arrival she was claudio and made cervical change therefore a primary section was performed. Physical Exam (per Admitting): Head: normocephalic Respiratory/Chest: chest non-tender, lungs clear Cardiovascular: regular rate, rhythm Abdomen/GI: normal bowel sounds, soft Neurologic/Psych: alert, oriented x 3 Skin: normal color, warm/dry, no rash Hospital Course Patient underwent a primary section on the morning of admission without complications. Her postop recovery was uneventful. On postop day # 1 her pineda catheter was removed and her incision dressing was removed and her incision remained clean,dry and intact throughout her stay. Her diet and activity were advanced as tolerated. She was discharge don POD # 3 with discharge instructions. Total time spent on discharge = 20 mins This includes examination of the patient, discharge planning, medication reconciliation, and communication with other providers. Discharge Instructions ACTIVITY RECOMMENDATIONS: * Gradual return to full activity over the next 2-3 weeks. * No lifting - nothing heavier than baby over the next 2-3 weeks. * Do not engage in vigorous exercise, sexual activity or sports until cleared by your physician. * Do not drive or operate any motorized equipment until cleared by your physician. * You may shower/bathe daily. BREAST CARE: If you are not breast feeding: * Wear a supportive bra 24 hours a day for one to two weeks. * Avoid stimulating your breasts and nipples as much as possible during the first few weeks after delivery. * When taking a shower, have the warm water hit your back, not breasts. * When your breasts feel full, apply ice packs. Usually three to four times a day helps ease the discomfort. * Take a mild pain medication (Tylenol/Motrin) when you are uncomfortable. If breast feeding: * Use breast milk to lubricate nipples. Lansinoh cream may be used for sore nipples. You do not need to remove cream prior to breast feeding. If using a different brand of cream, check the label for directions regarding removal of cream prior to nursing. * Wear a supportive bra. * If having problems with breasts or breast feeding, call a cloud consultant or your health care provider. OVER THE COUNTER MEDICATION: * For discomfort or pain, you may use Acetaminophen (Tylenol), Ibuprofen (Advil ), or Naproxen (Aleve) following the package directions. * For constipation you may use Colace following the package directions. SPECIAL CARE INSTRUCTIONS: When you are discharged from the hospital, it is important for you to follow the instructions listed below: * During the first week at home, you should be able to care for yourself and your baby. In addition, the usual light household activities are encouraged. * Limit your activities to the way you feel. Do not try to clean the house or move furniture. Be sensible. * If you actively engage in sports and have done so up until the time of your delivery, you may resume these activities as soon as you feel able. This may take up to one month or even longer. Use good judgment. * Continue to take your vitamins for at least six weeks after the of your baby. * Your diet need not be limited unless you were on a special diet before your delivery. Breast-feeding mothers need around 2500 calories per day and at least 64-80 ounces of fluid per day (8 to 10 glasses). * You should eat foods from the four major food groups. Crash diets or fad diets are to be avoided. Eating lean meats, fresh fruits and vegetables, low-fat dairy products, high fiber foods and a regular exercise program, will help you get back to your pre- weight without putting your health at risk. * Constipation is sometimes a problem after delivery. Take a mild laxative as needed. If breast feeding, Milk of Magnesia is acceptable to use. You may use a suppository or Fleets enema if no episiotomy. * A daily shower or tub bath is suggested. Be sure to thoroughly and gently dry the perineum. * A bloody vaginal discharge will usually continue until around four weeks post . A small amount of bleeding may continue for as long as six weeks. Vaginal discharge changes from the bright red bleeding after delivery to pink then brownish and finally yellowish-pink before becoming white and disappearing. * Bleeding may increase with activity. Your first period may come in 4-8 weeks. If you are breast feeding, your period may be delayed even longer. * [place] (sex) can begin whenever both you and your partner feel comfortable and do not have any form of genital infection. It is recommended that you wait at least six weeks for internal and external healing to occur. If you have questions, please talk to your health care practitioner. A condom should be used to prevent infection and . * Foreplay, gentle intercourse and lubrication is very important the first several times to prevent pain. A water-based lubricant such as K-Y jelly or Astroglide may be used. * Tampons and/or Douching should be avoided until after six weeks check-up. * If you have RH negative blood and your baby is RH positive, you will receive RHOGAM by injection prior to discharge. The nurse will give you a card to keep with you that has the date and place that you received RHOGAM after delivery. * During your care, you had a Rubella screen done to check for the presence of rubella antibodies in your blood. If your test was negative, you will receive a Rubella vaccine prior to discharge. This vaccine may cause a fever, soreness at the injection site and flu-like symptoms. If these symptoms persist, notify your health care practitioner. is not advised for three months after a Rubella vaccine. * Verbalizes understanding of car seat law as reviewed with patient nursing. * Car Seat hand-out given and reviewed with patient by nursing. * Shaken baby information reviewed with patient by nursing. Call you doctor if: * Heavy bleeding (saturating several pads an hour) or passing clots the size of your fist. * A fever >101 degrees F (38.3 degrees C) on two occasions four hours apart and /or chills. * Unusual pain in the pelvic or vaginal areas. Pain should improve each day . * Call the doctor for any increased redness, drainage or swelling around the incision and any pain unrelieved by prescribed pain medication. * Any signs or symptoms of phlebitis (possible blood clots forming in the veins ): leg pain, warm, red or swollen area on leg. * "Baby Blues" lasting longer than two weeks. If you have any questions or concerns, call your health care practitioner at . FOLLOW-UP VISIT: * Incision check (staple removal) in 1 week. Please call doctor's office at to set up appointment. * Please call the office at to schedule a 6 week examination. It is important you keep this appointment. * It is important for you to make arrangements for either yearly or twice yearly check-ups thereafter.
== END 2017-05-03 10:30 | disposition home or self-care (01) | DRG 766 ==
LOC: C.LD 01:05 → C.OPB 01:05 → C.LD 05:19 → C.OPB 05:30 → C.OBG 10:26
PROVIDERS: ADMIT Obstetrics & Gynecology; ATTEND Obstetrics & Gynecology
PROC: 10D00Z1 Extraction of Products of Conception, Low, Open Approach (ICD-10-PCS; principal; 2017-04-30 06:19)
DX: O99.824 Streptococcus B carrier state complicating childbirth (principal); Z37.0 Single live birth; Z3A.38 38 weeks gestation of pregnancy